=== PATIENT | male | born 2005 | race Caucasian/White ===

== ENCOUNTER 2025-04-03 18:58 | Emergency (ER) | payer OTHER, SELFPAY ==
[2025-04-03 19:08] VITALS: BP 147/87; PULSE 101; RESP 20; TEMP 37.1; O2SAT 98
--- NOTE | 2025-04-03 19:17 | ED_ITS ---
HPI - Ear Problem General Chief complaint: Ear Stated complaint: Possible ear infection Time Seen by Provider: 04/03/25 19:17 Source: patient and RN notes reviewed Mode of arrival: ambulatory Limitations: no limitations History of Present Illness HPI Narrative: 20-year-old male patient presents [facility] complaining of right ear pain for the last couple days. Patient has tried some leftover ear drops of previous infection, is unsure with the medication as does the labels removed and he is not sure if it is . Patient said he tried yesterday, he still having right ear pain without relief. Denies any upper respiratory symptoms, fevers, chest pain, breathing problems, or any other symptoms. Related Data Allergies Allergy/AdvReac Type Severity Reaction Status Date / Time dexmethylphenidate (From AdvReac Severe facial Verified 04/03/25 19:00 Focalin) twitch Review of Systems Review of Systems: CONSTITUTIONAL: Denies fever, chills, or sweats. EYES: Denies visual changes, redness, or discharge. ENT: Denies rhinorrhea, congestion, sore throat. Positive for otalgia. CARDIOVASCULAR: Denies chest pain, palpitations, or edema. RESPIRATORY: Denies cough or dyspnea. GASTROINTESTINAL: Denies abdominal pain, nausea, vomiting, or diarrhea. GENITOURINARY: Denies dysuria or hematuria. SKIN: Denies rash or itching. MUSCULOSKELETAL: Denies back pain, joint pain, or myalgia. NEUROLOGIC: Denies headache, numbness, or weakness. PSYCHIATRIC: Denies anxiety or depression. All other systems reviewed are negative, except as documented in HPI. [facility] Past Medical History Medical History Allergies Anxiety ADHD Family History Family History Father Hypertension Cancer Malignant neoplasm of prostate Social History Social History Smoking status: Never smoker Alcohol intake: never Substance use: never Lack of Transportation: No Lack of Food: Never True Current Housing: I Have Housing Concerned About Future Housing: No Difficulty Paying Gas/Electric Bills: No Difficulty Paying for Meds: No Currently Unemployed: No Education: Associate Degree Difficulty w/ Childcare or Family Care: No Living arrangements: with family Occupation/Education: unemployed Spiritual care concerns: No Agree to blood products: Yes Comments At the time of my signature, I reviewed and agree with the nursing past medical, surgical, social, and family history. There is no relevant family history pertinent to the patient complaint. Exam Narrative: GENERAL: This is a well-nourished, well-developed adult, in no apparent distress. They are non ill-appearing, nontoxic appearing. HEAD: normocephalic, atraumatic. EYES: Sclera clear/white. Conjunctiva normal. Vision is grossly intact. Extraocular movements intact EARS: External ears normal, left auditory canals clear and without drainage, right auditory canal mildly erythemic, dry and scaly. I tragal tenderness. TMs normal without perforation. Hearing grossly intact. NOSE: External nose normal with no obvious nasal discharge, nasal turbinates without redness, no rhinorrhea. THROAT: Mucous membranes moist, posterior pharynx clear, without erythema or swelling. Uvula midline. NECK: Neck supple, non-tender without lymphadenopathy, masses or thyromegaly. CARDIOVASCULAR: Regular rate and rhythm without murmurs, gallops, or rubs. RESPIRATORY: Clear to auscultation. Breath sounds equal bilaterally. No wheezes, rales, or rhonchi. SKIN: warm, Dry, intact with no suspicious lesions or rash, good texture and turgor. NEURO: awake, alert, and oriented to person, place and time. There were no obvious focal neurologic abnormalities. EXTREMITIES: No joint tenderness, effusion, or edema noted. BACK: Nontender without deformity. Course Course Level of Care: Express Care Visit Vital Signs Vital signs: Vital Signs Temperature 98.7 F 04/03/25 19:08 Pulse Rate 101 H 04/03/25 19:08 Respiratory Rate 20 04/03/25 19:08 Blood Pressure 147/87 H 04/03/25 19:08 Pulse Oximetry 98 04/03/25 19:08 Oxygen Delivery Room Air 04/03/25 19:08 Temperature 98.7 F 04/03/25 19:08 Pulse Rate 101 H 04/03/25 19:08 Respiratory Rate 20 04/03/25 19:08 Blood Pressure 147/87 H 04/03/25 19:08 Pulse Oximetry 98 04/03/25 19:08 Oxygen Delivery Room Air 04/03/25 19:08 MDM MDM Narrative Medical decision making narrative: Appears patient may have a right-sided otitis externa, will treat with ofloxacin ear drops. Discussed supportive care. Discussed physical exam findings. Advised supportive measures and signs/symptoms to go to the ER. Pt is appropriate for outpt treatment and f/u. Differential Diagnosis Differential Diagnosis: Otitis media, otitis externa, upper respiratory infection, TMJ Critical Care Time Critical Care Time Critical Care Time: No Discharge Plan Discharge Clinical Impression: Otitis externa Qualifiers: Otitis externa type: other infective Chronicity: acute Laterality: right Q ualified Code(s): H60.391 - Other infective otitis externa, right ear Patient Disposition: Home Condition: Stable Instructions: Antibiotic Form, Ear Infection (ED) Additional Instructions: Take antibiotic drops as directed. Tylenol and ibuprofen every 8 hours as needed to reduce fever, pain Avoid water or anything into the ear for one week Follow up with your personal physician for further evaluation and treatment within 3-5days. If your symptoms persist, change or worsen significantly, go to the emergency department for further evaluation. Patient Language: Divehi Prescriptions: New ofloxacin 0.3 % drops 10 drp RIGHT EAR DAILY 7 Days Qty: 10 0RF No Action atomoxetine 40 mg capsule 40 mg PO DAILY Qty: 60 0RF Rx Instructions: 40 daily for 1 week then increase to 80mg daily Follow-up/Referrals: UNKNOWN,DOCTOR [Primary Care Provider] Time of Disposition: 19:26
== END 2025-04-03 19:32 | disposition home or self-care (01) ==
DX: H60.391 Other infective otitis externa, right ear (principal); F90.9 Attention-deficit hyperactivity disorder, unspecified type
CPT/HCPCS: 99213; G0463